=== PATIENT | female | born 1960 | race Caucasian/White ===

== ENCOUNTER 2019-06-07 16:23 | Emergency (ER) | payer BC, MEDICAID ==
[~2019-06-07] VITALS: Ht 157.5 cm; Wt 82.6 kg
[~2019-06-07 16:23] MED LIST: HTN; ZOLOFT
[2019-06-07 16:25] VITALS: BP_SYST 122
--- NOTE | 2019-06-07 16:28 | NUR ---
Patient triaged and placed in waiting room. VSS and patient appears in no acute distress at this time. Accompanied by FAMILY, awaiting available bed, and MD notified of need for MSE.
--- NOTE | 2019-06-07 18:25 | NUR ---
BROUGHT BACK TO BED #4 VIA WHEELCHAIR, PLACED IN BED AND REPORT GIVEN TO TANVI
--- NOTE | 2019-06-07 18:38 | NUR ---
ER at bedside examining patient.
[2019-06-07] MEDS ORDERED: fentaNYL CITRATE/PF 100 MCG/2 ML AMP IM ONE (18:45)
--- NOTE | 2019-06-07 18:48 | NUR ---
medicated the pt w/ Fentanyl per MD order. Will reassess.
--- NOTE | 2019-06-07 18:55 | NUR ---
Radiology at bedside
--- NOTE | 2019-06-07 19:20 | NUR ---
care endorsed to Sylvain YBARRA. Pt is instable. Pt is resting comfortably in bed.
--- NOTE | 2019-06-07 19:25 | NUR ---
ASSUMED CARE. RECEIVED ALERT,ORIENTED. AFEBRILE, NOT IN ACUTE DISTRESS. VERBALIZED SIGNIFICANT IMPROVEMENT OF PAIN. VS REMAIN STABLE.
--- NOTE | 2019-06-07 19:41 | NUR ---
DISCHARGED STABLE AND IMPROVED. PRESCRIPTION,VERBAL AND WRITTEN AFTERCARE INSTRUCTIONS GIVEN. VERBALIZED UNDERSTANDING.
[2019-06-07 19:45] VITALS: BP_SYST 112
== END 2019-06-07 19:45 | disposition home or self-care (01) ==
LOC: SED 16:23
DX: S83.91XA Sprain of unspecified site of right knee, initial encounter (principal); I10 Essential (primary) hypertension; E78.5 Hyperlipidemia, unspecified; Z90.49 Acquired absence of other specified parts of digestive tract; Z90.710 Acquired absence of both cervix and uterus; W01.0XXA Fall on same level from slipping, tripping and stumbling without subsequent striking against object, initial encounter; Y93.G3 Activity, cooking and baking; Y92.090 Kitchen in other non-institutional residence as the place of occurrence of the external cause; Y99.8 Other external cause status
CPT/HCPCS: 73564; 96372; 99283; J3010

== ENCOUNTER 2019-10-22 14:37 | Emergency (ER) | payer OTHER, MEDICAID ==
[~2019-10-22] VITALS: Ht 157.5 cm; Wt 86.2 kg
[2019-10-22 15:12] VITALS: BP_SYST 120
--- NOTE | 2019-10-22 15:21 | NUR ---
Patient to ER bed 05 to gown for evaluation. Side rails up.
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
--- NOTE | 2019-10-22 15:44 | NUR ---
ER Dr. Mcadams at bedside examining patient.
--- NOTE | 2019-10-22 15:48 | NUR ---
Patient moved to [facility].
[2019-10-22] MEDS ORDERED: KETOROLAC TROMETHAMINE 60 MG/2 ML VIAL IM ONE (16:00)
[2019-10-22 17:00] VITALS: BP_SYST 120
--- NOTE | 2019-10-22 17:00 | NUR ---
Patient given written and verbal discharge instructions and verbalizes understanding. ER MD discussed with patient the results and treatment provided. Patient in stable condition. ID arm band removed. Rx of IBUPROFEN given. Patient educated on pain management and to follow up with PMD. Pain Scale 0/10 Opportunity for questions provided and answered. Medication side effect fact sheet provided.
== END 2019-10-22 17:00 | disposition home or self-care (01) ==
LOC: SED 14:37
DX: S16.1XXA Strain of muscle, fascia and tendon at neck level, initial encounter (principal); S39.012A Strain of muscle, fascia and tendon of lower back, initial encounter; I10 Essential (primary) hypertension; E78.5 Hyperlipidemia, unspecified; V49.59XA Passenger injured in collision with other motor vehicles in traffic accident, initial encounter; Y93.89 Activity, other specified; Y92.413 State road as the place of occurrence of the external cause; Y99.8 Other external cause status
CPT/HCPCS: 72040; 72100; 96372; 99284; J1885

== ENCOUNTER 2020-01-08 10:49 | Emergency (ER) | payer MEDICAID ==
[~2020-01-08] VITALS: Ht 154.9 cm; Wt 84.4 kg
[2020-01-08 10:54] VITALS: BP_SYST 130
[2020-01-08] MEDS ORDERED: NACL 0.9% 1,000 ML IV ONE (10:56)
[2020-01-08 11:29] LABS: BASOPHILS % (AUTO) 0.7 % (0.0-2.0); EOSINOPHILS # (AUTO) 0.1 K/uL (0.0-0.4); EOSINOPHILS % (AUTO) 2.4 % (0.0-4.0); HEMATOCRIT 43.1 % (36-48); HEMOGLOBIN 14.5 g/dL (12.0-16.0); LYMPHOCYTES # (AUTO) 1.6 K/uL (1.0-5.5); LYMPHOCYTES % (AUTO) 27.9 % (20.5-51.5); MEAN CORPUSCULAR HEMOGLOBIN 30 pg (27-31); MEAN CORPUSCULAR HGB CONC 34 % (32-36); MEAN CORPUSCULAR VOLUME 88 fL (79.0-98.0); MONOCYTES # (AUTO) 0.3 K/uL (0.0-1.0); MONOCYTES % (AUTO) 5.1 % (1.7-9.3); NEUTROPHILS # (AUTO) 3.6 K/uL (1.8-7.7); NEUTROPHILS % (AUTO) 63.9 % (40.0-70.0); PLATELET COUNT (AUTO) 121 K/uL (130-430); RED BLOOD CELL COUNT(AUTO) 4.87 MIL/uL (4.2-6.2); RED CELL DISTRIBUTION WIDTH 13.9 % (9.0-15.0); WHITE BLOOD COUNT (AUTO) 5.6 K/uL (4.8-10.8)
[2020-01-08 11:36] LABS: CALCIUM 9.2 mg/dL (8.4-11.0); CREATININE 0.65 mg/dL (0.55-1.30); POTASSIUM 3.6 mmol/L (3.5-5.1)
[2020-01-08 11:41] LABS: ALBUMIN 3.7 g/dL (3.4-4.8); TOTAL BILIRUBIN 0.6 mg/dL (0.0-1.0)
[2020-01-08] MEDS ORDERED: KETOROLAC TROMETHAMINE 30 MG VIAL IVP ONE (11:45)
[2020-01-08 13:23] LABS: BILIRUBIN,URINE NEGATIVE (NEGATIVE); CLARITY/URINE CLEAR (CLEAR); COLOR,URINE YELLOW (YELLOW); GLUCOSE,URINE NEGATIVE (NEGATIVE); KETONES,URINE NEGATIVE (NEGATIVE); LEUKOCYTE ESTERASE ,URINE NEGATIVE (NEGATIVE); NITRITE, URINE NEGATIVE (NEGATIVE); PROTEIN URINE NEGATIVE (NEGATIVE)
[2020-01-08 13:25] LABS: BLOOD, URINE TRACE (NEGATIVE)
[2020-01-08 13:30] LABS: BACTERIA,URINE FEW /HPF (None Seen); RBC,URINE 0-3 /HPF (0-3); WBC,URINE 0-3 /HPF (0-3)
[2020-01-08 13:31] LABS: MUCUS,URINE 1+ /LPF (None Seen)
[2020-01-08 14:03] VITALS: BP_SYST 125
== END 2020-01-08 14:03 | disposition home or self-care (01) ==
LOC: SED 10:49
DX: K59.00 Constipation, unspecified (principal); I10 Essential (primary) hypertension
CPT/HCPCS: 36415; 74176; 80053; 81000; 85025; 87040; 96361; 96374; 99284; J1885; J7030

== ENCOUNTER 2021-08-16 17:04 | Emergency (ER) | payer OTHER, MEDICAID ==
[~2021-08-16] VITALS: Ht 157.5 cm; Wt 79.4 kg
[2021-08-16 17:34] VITALS: BP_SYST 122
[2021-08-16] MEDS ORDERED: OXYCODONE/ACETAMINOPHEN 5-325 TABLET PO ONE (19:15)
[2021-08-16] MEDS ORDERED: TRAM50TA2 PO (20:46)
[2021-08-16 22:00] VITALS: BP_SYST 124
== END 2021-08-16 22:15 | disposition home or self-care (01) ==
LOC: SED 17:04
DX: S30.0XXA Contusion of lower back and pelvis, initial encounter (principal); M51.26 Other intervertebral disc displacement, lumbar region; I10 Essential (primary) hypertension; Z79.899 Other long term (current) drug therapy; W18.39XA Other fall on same level, initial encounter; Y93.89 Activity, other specified; Y92.89 Other specified places as the place of occurrence of the external cause; Y99.8 Other external cause status
CPT/HCPCS: 71045; 72131; 72192-TC; 76376; 99284

== ENCOUNTER 2022-06-10 16:43 | Emergency (ER) | payer OTHER, MEDICAID ==
[~2022-06-10] VITALS: Ht 157.5 cm; Wt 77.1 kg
[2022-06-10 17:34] VITALS: BP_SYST 154
[2022-06-10] MEDS ORDERED: KETOROLAC TROMETHAMINE 30 MG VIAL IM ONE (17:45)
[2022-06-10] MEDS ORDERED: HYDR-3917 PO (17:45)
[2022-06-10] MEDS ORDERED: LIDOCAINE PATCH 5% 1 EA TP ONE ×2 (17:45→19:33)
[2022-06-10] MEDS ORDERED: LIDO1ADH77 TD (17:45)
[2022-06-10] MEDS ORDERED: CYCL10TA24 PO (17:45)
--- NOTE | 2022-06-10 17:46 | NUR ---
DR. CAMPOS IN TRIAGE ASSESSING PATIENT
--- NOTE | 2022-06-10 18:32 | NUR ---
Patient to ER bed 04 to gown for evaluation.
[2022-06-10] MEDS ORDERED: KETOROLAC TROMETHAMINE 30 MG VIAL ONE (19:32)
--- NOTE | 2022-06-10 19:32 | NUR ---
PATIENT BROUGHT IN COMPLAINING OF LEFT LOWER BACK PAIN AFTER LIFTING LAUNDRY BASKET. PATIENT TOOK MOTRIN WITHOUT RELIEF. EDMUNDO REPORTS THAT SHE RAN OUT OF HER NORCO AND IS NOT SCHEDULED TO SEE HER PAIN MANAGEMENT DOCTOR UNTIL 06/25. PAIN 08/23
[2022-06-10 20:45] VITALS: BP_SYST 132
--- NOTE | 2022-06-10 20:45 | NUR ---
Patient given written and verbal discharge instructions and verbalizes understanding. ER MD discussed with patient the results and treatment provided. Patient in stable condition. ID arm band removed. Rx of FLEXERIL AND NORCO given. Patient educated on pain management and to follow up with PMD. Pain Scale 0/10 Opportunity for questions provided and answered. Medication side effect fact sheet provided.
== END 2022-06-10 20:45 | disposition home or self-care (01) ==
LOC: SED 16:43
DX: M54.50 Low back pain, unspecified (principal); G89.29 Other chronic pain; I10 Essential (primary) hypertension; E78.5 Hyperlipidemia, unspecified; Z79.899 Other long term (current) drug therapy
CPT/HCPCS: 99283; 96374; J1885